=== PATIENT | male | born 1965 | race Caucasian/White ===

== ENCOUNTER 2016-12-07 13:46 | Emergency (ER) | payer SELFPAY ==
[~2016-12-07] VITALS: Ht 175.3 cm; Wt 63.0 kg
[~2016-12-07 13:46] MED LIST: ALBUTEROL; LEVO750T21 PO; OMEP20CA10 PO; P20 PO; P50 PO; PROIN3 IH; ProAir HFA INH
[2016-12-07 14:06] VITALS: BP 104/65
== END 2016-12-07 15:50 | disposition home or self-care (01) ==
LOC: ER 15:50
DX: Z48.02 Encounter for removal of sutures (principal)
CPT/HCPCS: 99283; Z7610

== ENCOUNTER 2018-08-13 04:00 | Emergency (ER) | payer MEDICAID ==
[~2018-08-13] VITALS: Ht 177.8 cm; Wt 77.0 kg
[2018-08-13] MEDS ORDERED: IBUPROFEN 600MG TABLET PO ONE (04:30)
[2018-08-13 06:46] LABS: HEMATOCRIT. 40.6 % (42.0-52.0); HEMOGLOBIN. 13.7 g/dL (14.0-18.0); MEAN CORPUSCULAR HEMOGLOBIN 28.7 pg (28.0-32.0); MEAN CORPUSCULAR VOLUME 85.2 fL (80.0-94.0); MEAN PLATELET VOLUME 6.9 fl (7.4-10.4); PLATELET 419 x1000/uL (130-400); RED BLOOD CELL COUNT 4.77 mill/uL (4.7-6.1); RED CELL DISTRIBUTION WIDTH 14.1 % (11.6-14.6)
[2018-08-13 06:50] LABS: CHLORIDE 96 mEq/L (98-107)
[2018-08-13 06:53] LABS: INR 1.1; PROTHROMBIN TIME 11.4 sec (9.1-11.1)
[2018-08-13 06:55] LABS: ETHANOL BLOOD < 10 mg/dL
[2018-08-13 07:03] LABS: PLATELET ESTIMATE SLIGHTLY INCREASED
[2018-08-13 11:05] VITALS: BP 132/75
[2018-08-13 11:24] LABS: CLARITY URINE CLEAR (CLEAR); COLOR URINE YELLOW (YELLOW); KETONES URINE 1+ (NEGATIVE); LEUKOCYTE ESTERASE URINE TRACE (NEGATIVE); NITRITE URINE NEGATIVE (NEGATIVE); OCCULT BLOOD URINE NEGATIVE (NEGATIVE); PH URINE 5.5 (4.5-8.0); PROTEIN URINE NEGATIVE (NEGATIVE); SPECIFIC GRAVITY URINE 1.013 (1.005-1.030); UROBILINOGEN URINE 0.2 E.U./dL (0.2-1.0)
[2018-08-13 11:32] LABS: *BARBITURATES SCREEN URINE NEGATIVE (NEGATIVE)
[2018-08-13 11:33] LABS: *AMPHETAMINES SCREEN URINE PRESUMTIVE POSITIVE (NEGATIVE); *BENZODIAZEPINES SCREEN URINE NEGATIVE (NEGATIVE); *COCAINE SCREEN URINE NEGATIVE (NEGATIVE); METHADONE URINE SCREEN NEGATIVE (NEGATIVE); OPIATES URINE SCREEN NEGATIVE (NEGATIVE); PHENCYCLIDINE URINE SCREEN NEGATIVE (NEGATIVE)
[2018-08-13 11:34] LABS: CANNABINOID URINE SCREEN NEGATIVE (NEGATIVE)
== END 2018-08-13 11:25 | disposition home or self-care (01) ==
LOC: ER 04:00
DX: R07.89 Other chest pain (principal); M25.551 Pain in right hip; Z79.899 Other long term (current) drug therapy
CPT/HCPCS: 36415; 70450; 71045; 72170; 80053; 80305; 80307; 80329; 81003; 83605; 83880; 84145; 84484; 85025; 85610; 87040; 87086; 99284; G0482